=== PATIENT | female | born 1990 | race Hispanic/Latino ===

== ENCOUNTER → 2017-02-11 | Outpatient (CLI) | payer OTHER | END | disposition home or self-care (01) | LOC: NUC 09:00 | DX: E05.90 Thyrotoxicosis, unspecified without thyrotoxic crisis or storm (principal); E04.2 Nontoxic multinodular goiter; R53.83 Other fatigue; R63.5 Abnormal weight gain | CPT/HCPCS: 79005; A9517 ==